=== PATIENT | female | born 2005 | race Hispanic/Latino ===

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

== ENCOUNTER 2024-09-01 11:59 | Emergency (ER) | payer OTHER ==
--- OUTSIDE RECORDS SUMMARY | 2024-09-01 12:03 | XMS REPORT | Continuity of Care Document ---
Author Name Unknown Address [address] [facility] [place], [place] [address] [place] [address] thconnect Address [address] [facility] [place] [address] Care Team Providers Care Pediatric Physical Therapist Name Role Phone NEFTALI HERNÁNDEZ Attending Clinician Unavailable GABRIELA KEANE Attending Clinician Unavailable [facility] Attending Clinician UnavailTIMUR Rangel Attending Clinician Leora CALVERT MD Attending Clinician Unavailab le [email or web address]_S Attending Clinician Unavaila ble LAB90 Attending Clinician Unavailable [email or web address]_S Admitting Clinician Unavaila ble Payers Payer Name Policy Type Policy Number Effective Date Expirati on Date Source [facility] 2 [id number] 2023 00:00:00 [facility] - [facility] - DOS ON OR AFTER 2022 (EPO) [id number] [facility] - [facility] [id number] Problems Condition Name Condition Details Condition Category Status Onset Date Resolution Date Last Treatment Date Treating Clinician Comments Source TIMUR (generaliz ed anxiety disorder) TIMUR (generaliz ed anxiety disorder) Disease Active 02-06 00:00: 00 Jolie gaona Morbid obesity Morbid obesity Disease Active 12-10 00:00: 00 Jolie Dougherty - Kirstina l BMI 50.0-59.9, adult BMI 50.0-59.9, adult Disease Active 12-10 00:00: 00 Jolie Dougherty - Externa l Vitamin D deficiency Vitamin D deficiency Disease Active 12-10 00:00: 00 Jolie Fontana Externa l Hypertrigl yceridemia Hypertrigl yceridemia Disease Active 12-10 00:00: 00 Jolie Dougherty - Externa l Elevated ALT measuremen t Elevated ALT measuremen t Disease Active 12-10 00:00: 00 Jolie Dougherty - Externa l Pain in pelvis Pain in Pelvis Problem Active 12-06 00:00: 00 [facility] Dysmenorrh ea Dysmenorrh ea Problem Active 2019-11 00:00: 00 [facility] Excessive and frequent menstruati on Excessive and Frequent Menstruati on Problem Active 2019-11 00:00: 00 [facility] Body mass index 40+ - severely obese Body Mass Index 40+ - Severely Obese Problem Active 2019-11 00:00: 00 [facility] Severe obesity Severe Obesity Problem Active 2019-11 00:00: 00 [facility] Social History Social Habit Start Date Stop Date Quantity Comments Source ASSERTION Not Jolie Dougherty - External Sexual orientation [place] ryanne Dougherty - External History of Social function 2024-08-12 00:00:00 2024-08-12 00:00:00 Jolie Dougherty - External Sex 2023-10-19 07:40:25 2023-10-19 07:40:25 Female (finding) Jolie Dougherty - External Tobacco use and exposure 2023-10-19 00:00:00 2023-10-19 00:00:00 Smokeless tobacco non-user Jolie Dougherty - External Sex assigned at 2005 00:00:00 2005 00:00:00 F Jolie Dougherty - External Smoking Status Start Date Stop Date Source Never smoked tobacco Jolie Dougherty - External Medications Ordered Medication Name Filled Medication Name Start Date Stop Date Current Medication? Ordering Clinician Indication Dosage Frequency Signature (SIG) Comments Components Source Ondansetron (ZOFRAN) 4 MG oral TABLET DISPERSIBLE 2023-11 15:53: 58 Yes ondansetro n 4 mg disintegra ting tablet TAKE ONE (1) TABLET BY MOUTH EVERY 8 HOURS NEEDED FOR NAUSEA. Jolie gaona Propranolol HCl 10 MG oral Tablet 2023-11 15:53: 58 Yes [id number] propranolo l 10 mg tablet TAKE ONE (1) TABLET (10 MG TOTAL) BY MOUTH 3 TIMES DAILY NEEDED (ANXIETY). Jolie gaona Trazodone HCl 50 MG oral Tablet 2023-11 00:00: 00 Yes [id number] 50mg QD Take 1 tablet (50 mg total) by mouth nightly. Jolie gaona Semaglutide -Weight Management (Wegovy) 0.25 MG/0.5ML subcutaneou s Solution Auto-inject or 2023-11 00:00: 00 Yes [id number] .25mg Q1W Inject 0.25 mg into the skin once a week. Jolie gaona Phentermine HCl 37.5 MG oral Tablet 2023-11 00:00: 00 Yes [id number] 37.5mg Take 1 tablet (37.5 mg total) by mouth every morning (before breakfast) . Jolie gaona Fluoxetine HCl 20 MG oral Capsule 2023-11 00:00: 00 Yes [id number] 60mg QD Take 3 capsules (60 mg total) by mouth daily. Jolie gaona Norgestimat e-Ethinyl Estradiol (Tri-Estary lla) 0.18/0.215/ 0.25 MG-35 MCG oral Tablet 07-07 14:20: 51 07-07 00:00 :00 No 1{tbl} QD Take 1 tablet by mouth daily. Jolie gaona Norgestimat e-Ethinyl Estradiol (Tri-Estary lla) 0.18/0.215/ 0.25 MG-35 MCG oral Tablet 07-07 00:00: 00 Yes [id number] 1{tbl} QD Take 1 tablet by mouth daily. Jolie gaona Topiramate 50 MG oral Tablet 07-07 00:00: 00 Yes [id number] 50mg Q.5D Take 1 tablet (50 mg total) by mouth 2 times daily. Jolie gaona Fluoxetine HCl 20 MG oral Capsule 07-07 00:00: 00 08-12 00:00 :00 No [id number] 60mg QD Take 3 capsules (60 mg total) by mouth daily. Jolie gaona Phentermine HCl 37.5 MG oral Tablet 07-07 00:00: 00 08-12 00:00 :00 No [id number] 18.75mg Take 0.5 tablets (18.75 mg total) by mouth every morning (before breakfast) . Jolie gaona Diethylprop ion HCl CR 75 MG oral TABLET SR 24 HR 07-07 00:00: 00 07-07 00:00 :00 No [id number] 1{tbl} QD Take 1 tablet by mouth daily. Jolie gaona Lisdexamfet amine Dimesylate (Vyvanse) 30 MG oral Capsule 06-13 09:24: 47 06-13 00:00 :00 No 1 capsule in the morning; Once a day Jolie gaona Norgestimat e-Ethinyl Estradiol (Tri-Estary lla) 0.18/0.215/ 0.25 MG-35 MCG oral Tablet 06-13 09:16: 56 Yes 1{tbl} QD Take 1 tablet by mouth daily. Jolie gaona Cetirizine HCl (ZyrTEC Allergy) 10 MG oral Capsule 06-13 00:00: 00 Yes [id number] 10mg QD Take 1 capsule (10 mg total) by mouth daily. Jolie gaona Cholecalcif driss (Vitamin D) 25 MCG (1000 UT) oral Tablet 06-13 00:00: 00 08-12 00:00 :00 No [id number] 1{tbl} QD Take 1 tablet by mouth daily. Jolie gaona Ciprofloxac in-dexAMETH asone 0.3-0.1 % otic Suspension 06-13 00:00: 00 06-19 04:59 :00 Yes [id number] 51950 3[drp] Q.5D Place 3 drops into the left ear 2 times daily for 5 days. Jolie gaona Norgestimat e-Ethinyl Estradiol (Tri-Estary lla) 0.18/0.215/ 0.25 MG-35 MCG oral Tablet 06-05 15:08: 47 Yes 1{tbl} QD Take 1 tablet by mouth daily. Jolie gaona Lisdexamfet amine Dimesylate (Vyvanse) 30 MG oral Capsule 06-05 15:08: 47 Yes 1 capsule in the morning; Once a day Jolie gaona Diethylprop ion HCl CR 75 MG oral TABLET SR 24 HR 06-05 00:00: 00 07-07 00:00 :00 No [id number] 1{tbl} QD Take 1 tablet by mouth daily. Jolie gaona Norgestimat e-Ethinyl Estradiol (Ortho Tri-Cyclen Lo) 0.18/0.215/ 0.25 MG-25 MCG oral Tablet 06-05 00:00: 00 06-13 00:00 :00 No [id number] 1{tbl} QD Take 1 tablet by mouth daily. Jolie gaona Amoxicillin 875 MG oral Tablet 06-05 00:00: 00 06-13 00:00 :00 No [id number] 875mg Q.5D Take 1 tablet (875 mg total) by mouth 2 times daily. Jolie gaona Diethylprop ion HCl CR 75 MG oral TABLET SR 24 HR 05-13 00:00: 00 06-05 00:00 :00 No [id number] 1{tbl} QD Take 1 tablet by mouth daily. Jolie gaona Diethylprop ion HCl CR 75 MG oral TABLET SR 24 HR 03-14 00:00: 00 Yes [id number] 1{tbl} Take 1 tablet by mouth daily. Jolie gaona Fluocinolon e Acetonide 0.01 % apply externally Cream 03-14 00:00: 00 Yes [id number] 1{appli cation} Q.5D Apply 1 Applicatio n topically 2 times daily. Jolie gaona Topiramate 50 MG oral Tablet 03-14 00:00: 07-07 00:00 :00 No [id number] 50mg Q.5D Take 1 tablet (50 mg total) by mouth 2 times daily. Jolie gaona Fluoxetine HCl 40 MG oral Capsule 03-14 00:00: 00 07-07 00:00 :00 No [id number] 40mg QD Take 1 capsule (40 mg total) by mouth daily. Jolie gaona Triamcinolo ne Acetonide 0.1 % apply externally Cream 03-14 00:00: 00 04-12 04:59 :00 No [id number] Apply to rash twice daily. Jolie gaona Ondansetron (ZOFRAN) 4 MG oral TABLET DISPERSIBLE 02-06 00:00: 00 06-13 00:00 :00 No [id number] 4mg Q.[id number] 3D Take 1 tablet (4 mg total) by mouth every 8 hours as needed for nausea. Jolie gaona Norgestimat e-Ethinyl Estradiol (Ortho Tri-Cyclen Lo) 0.18/0.215/ 0.25 MG-25 MCG oral Tablet 02-06 00:00: 00 06-05 00:00 :00 No [id number] 1{tbl} QD Take 1 tablet by mouth daily. Jolie gaona Diethylprop ion HCl CR 75 MG oral TABLET SR 24 HR 02-06 00:00: 00 03-14 00:00 :00 No [id number] 1{tbl} Take 1 tablet by mouth daily. Jolie gaona Topiramate 50 MG oral Tablet 02-06 00:00: 00 03-14 00:00 :00 No [id number] 50mg Take 1 tablet (50 mg total) by mouth 2 times daily. Jolie gaona Fluoxetine HCl 40 MG oral Capsule 02-06 00:00: 00 03-14 00:00 :00 No [id number] 40mg Take 1 capsule (40 mg total) by mouth daily. Jolie gaona Semaglutide -Weight Management (Wegovy) 0.25 MG/0.5ML subcutaneou s Solution Auto-inject or 01-08 00:00: 00 Yes [id number] .25mg Inject 0.25 mg into the skin once a week. Jolie gaona Topiramate 50 MG oral Tablet 01-08 00:00: 00 Yes [id number] 50mg Take 1 tablet (50 mg total) by mouth 2 times daily. Jolie gaona Diethylprop ion HCl CR 75 MG oral TABLET SR 24 HR 01-08 00:00: 00 Yes [id number] 1{tbl} Take 1 tablet by mouth daily. Jolie gaona Fluoxetine HCl 20 MG oral Capsule 01-08 00:00: 00 Yes [id number] 20mg Take 1 capsule (20 mg total) by mouth daily. Jolie gaona Propranolol HCl 10 MG oral Tablet 01-08 00:00: 00 06-13 00:00 :00 No [id number] 10mg Q.[id number] 3D Take 1 tablet (10 mg total) by mouth 3 times daily as needed (anxiety). Jolie gaona Semaglutide -Weight Management (Wegovy) 0.25 MG/0.5ML subcutaneou s Solution Auto-inject or 2- 00:00: 00 01-08 00:00 :00 No [id number] .25mg Inject 0.25 mg into the skin once a week. Jolie gaona Vitamin D, Ergocalcife rol, 1.25 MG (21203 UT) oral Capsule 2-05 00:00: 00 06-13 00:00 :00 No [id number] 34448Y Q1W Take 1 capsule (50,000 units total) by mouth once a week. Jolie gaona Topiramate 25 MG oral Tablet 12-10 00:00: 00 Yes [id number] 25mg Take 1 tablet (25 mg total) by mouth 2 times daily. Jolie gaona Tirzepatide -Weight Management 2.5 MG/0.5ML subcutaneou s Solution Auto-inject or 12-10 00:00: 00 Yes [id number] 2.5mg Inject 0.5 mL (2.5 mg total) into the skin once a week. Jolie gaona levoFLOXaci n 500 MG oral Tablet 12-05 00:00: 00 01-08 00:00 :00 No 500mg Take 1 tablet (500 mg total) by mouth daily. Jolie gaona Metronidazo le 500 MG oral Tablet 12-05 00:00: 00 01-08 00:00 :00 No 500mg Take 1 tablet (500 mg total) by mouth every 12 hours. Jolie gaona Vitamin D, Ergocalcife rol, 1.25 MG (80607 UT) oral Capsule -15 00:00: 00 Yes [id number] 79170K Take 1 capsule (50,000 units total) by mouth once a week. Jolie gaona Norgestimat e-Ethinyl Estradiol (Ortho Tri-Cyclen Lo) 0.18/0.215/ 0.25 MG-25 MCG oral Tablet 11-19 00:00: 00 Yes [id number] 1{tbl} Take 1 tablet by mouth daily. Jolie gaona Ondansetron (ZOFRAN) 4 MG oral TABLET DISPERSIBLE 11-19 00:00: 00 01-08 00:00 :00 No [id number] 4mg Q.[id number] 3D Take 1 tablet (4 mg total) by mouth every 8 hours as needed for nausea. Jolie gaona Amoxicillin -Pot Clavulanate 875-125 MG oral Tablet 11-14 00:00: 00 Yes TAKE ONE (1) TABLET(S) BY MOUTH TWICE A DAY FOR 7 DAYS. Jolie gaona Promethazin e HCl (PHENERGAN) 25 MG oral Tablet 11-14 00:00: 00 Yes TAKE ONE (1) TABLET(S) BY MOUTH EVERY FOUR TO SIX HOURS NEEDED FOR VOMITING. Jolie gaona Norgestimat e-Ethinyl Estradiol (Tri-Sprint ec) 0.18/0.215/ 0.25 MG-35 MCG oral Tablet 2022-11 00:00: 00 Yes [id number] 1{tbl} Take 1 tablet by mouth daily. Jolie gaona Naproxen 500 MG oral Tablet 2022-11 00:00: 00 08-12 00:00 :00 No [id number] 500mg Take 1 tablet (500 mg total) by mouth in the morning and 1 tablet (500 mg total) in the evening. Take with meals. Jolie gaona Amoxicillin -Pot Clavulanate 875-125 MG oral Tablet 2022-11 00:00: 00 Yes [id number] 1{tbl} Take 1 tablet by mouth 2 times daily. Jolie gaona Pseudoeph-B romphen-DM 30-2-10 MG/5ML oral Syrup 2022-11 00:00: 00 Yes [id number] 10mL Q.25D Take 10 mL by mouth 4 times daily as needed. Jolie gaona Tri-Estaryl la (28) 0.18 mg(7)/0.215 mg(7)/0.25 mg(7)-35 mcg tablet TAKE ONE (1) TABLET(S) BY MOUTH DAILY. Tri-Estaryl la (28) 0.18 mg(7)/0.215 mg(7)/0.25 mg(7)-35 mcg tablet TAKE ONE (1) TABLET(S) BY MOUTH DAILY. No Tri-Estary lla (28) 0.18 mg(7)/0.21 5 mg(7)/0.25 mg(7)-35 mcg tablet TAKE ONE (1) TABLET(S) BY MOUTH DAILY. [facility] Tri-Lo-Spri ntec 0.18 mg/0.215 mg/0.25 mg-25 mcg tablet Take 1 tablet every day by oral route for 84 days. Tri-Lo-Spri ntec 0.18 mg/0.215 mg/0.25 mg-25 mcg tablet Take 1 tablet every day by oral route for 84 days. No 1 Q1D Tri-Lo-Spr intec 0.18 mg/0.215 mg/0.25 mg-25 mcg tablet Take 1 tablet every day by oral route for 84 days. [facility] Immunizations Ordered Immunization Name Filled Immunization Name Date Status Comments Source MMR- Measles, Mumps, Rubella Unknown Completed Jolie Seybold - External Pneumococcal Vaccine, Conjugate 7 Unknown Completed Jolie Seybold - External Varicella Vaccine Unknown Completed Ke lsey Seybold - External Hepatitis B, Unspecified Unknown Completed Jolie Seybold - External MMR- Measles, Mumps, Rubella Unknown Completed Jolie Seybold - External Pneumococcal Vaccine, Conjugate 7 Unknown Completed Jolie Seybold - External Varicella Vaccine Unknown Completed Ke lsey Seybold - External Hepatitis B, Unspecified Unknown Completed Jolie Seybold - External MMR- Measles, Mumps, Rubella Unknown Completed Jolie Seybold - External Pneumococcal Vaccine, Conjugate 7 Unknown Completed Jolie Seybold - External Varicella Vaccine Unknown Completed Ke lsey Seybold - External Hepatitis B, Unspecified Unknown Completed Jolie Seybold - External MMR- Measles, Mumps, Rubella Unknown Completed Jolie Seybold - External Pneumococcal Vaccine, Conjugate 7 Unknown Completed Jolie Seybold - External Varicella Vaccine Unknown Completed Ke lsey Seybold - External Hepatitis B, Unspecified Unknown Completed Jolie Seybold - External MMR- Measles, Mumps, Rubella Unknown Completed Jolie Seybold - External Pneumococcal Vaccine, Conjugate 7 Unknown Completed Jolie Seybold - External Varicella Vaccine Unknown Completed Ke lsey Seybold - External Hepatitis B, Unspecified Unknown Completed Jolie Seybold - External DTP-Hib-Hep B Unknown Completed Jolie Seybold - External MMR- Measles, Mumps, Rubella Unknown Completed Jolie Seybold - External Pneumococcal Vaccine, Conjugate 7 Unknown Completed Jolie Seybold - External Varicella Vaccine Unknown Completed Ke lsey Seybold - External Hepatitis B, Unspecified Unknown Completed Jolie Seybold - External DTP-Hib-Hep B Unknown Completed Jolie Seybold - External MMR- Measles, Mumps, Rubella Unknown Completed Jolie Seybold - External Pneumococcal Vaccine, Conjugate 7 Unknown Completed Jolie Seybold - External Varicella Vaccine Unknown Completed Ke lsey Seybold - External Hepatitis B, Unspecified Unknown Completed Jolie Seybold - External DTP-Hib-Hep B Unknown Completed Jolie Seybold - External MENINGOCOCCAL VACCINE-CONJUGATE(MENQ UADFI) Unknown Completed Jolie Seybold - External MMR- Measles, Mumps, Rubella Unknown Completed Jolie Seybold - External Pneumococcal Vaccine, Conjugate 7 Unknown Completed Jolie Seybold - External Varicella Vaccine Unknown Completed Ke lsey Seybold - External Hepatitis B, Unspecified Unknown Completed Ojlie Seybold - External DTP-Hib-Hep B Unknown Completed Jolie Seybold - External MENINGOCOCCAL VACCINE-CONJUGATE(MENQ UADFI) Unknown Completed Jolie Seybold - External MMR- Measles, Mumps, Rubella Unknown Completed Jolie Seybold - External Pneumococcal Vaccine, Conjugate 7 Unknown Completed Jolie Seybold - External Varicella Vaccine Unknown Completed Ke lsey Seybold - External MMR- Measles, Mumps, Rubella Unknown Completed Jolie Seybold - External Pneumococcal Vaccine, Conjugate 7 Unknown Completed Jolie Seybold - External Varicella Vaccine Unknown Completed Ke lsey Seybold - External Hepatitis B, Unspecified Unknown Completed Jolie Seybold - External Vital Signs Vital Name Observation Time Observation Value Comments S [facility] Systolic blood pressure 2024-08-12 20:50:00 144 mm[Hg] Jolie Mendez ld - External Diastolic blood pressure 2024-08-12 20:50:00 68 mm[Hg] Jolie Mendez ld - External Heart rate 2024-08-12 20:50:00 96 /min Alta Dougherty - External Body temperature 2024-08-12 20:50:00 36.83 Flores Jolie Dougherty - External Respiratory rate 2024-08-12 20:50:00 15 /min Jolie Dougherty - External Body height 2024-08-12 20:50:00 182.9 cm Talya ey Seybold - External Body weight 2024-08-12 20:50:00 185.521 kg Talya ey Seybold - External BMI 2024-08-12 20:50:00 55.47 kg/m2 Talya ey Seybold - External Systolic blood pressure 2024-07-07 19:13:00 120 mm[Hg] Jolie Seybo ld - External Diastolic blood pressure 2024-07-07 19:13:00 60 mm[Hg] Jolie Seybo ld - External Heart rate 2024-07-07 19:13:00 103 /min Kelse y Seybold - External Body temperature 2024-07-07 19:13:00 36.56 Flores Jolie Seybold - External Respiratory rate 2024-07-07 19:13:00 16 /min Jolie Seybold - External Body height 2024-07-07 19:13:00 182.9 cm Talya ey Seybold - External Body weight 2024-07-07 19:13:00 185.521 kg Talya ey Seybold - External BMI 2024-07-07 19:13:00 55.47 kg/m2 Talya ey Seybold - External Systolic blood pressure 2024-06-13 14:14:00 120 mm[Hg] Ojlie Seybo ld - External Diastolic blood pressure 2024-06-13 14:14:00 58 mm[Hg] Jolie Seybo ld - External Heart rate 2024-06-13 14:14:00 73 /min Kelse y Seybold - External Body temperature 2024-06-13 14:14:00 37.11 Flores Jolie Seybold - External Respiratory rate 2024-06-13 14:14:00 15 /min Jolie Seybold - External Body height 2024-06-13 14:14:00 182.9 cm Talya ey Seybold - External Body weight 2024-06-13 14:14:00 180.532 kg Talya ey Seybold - External BMI 2024-06-13 14:14:00 53.98 kg/m2 Talya ey Seybold - External Oxygen saturation in Arterial blood by Pulse oximetry 2024-06-13 14:14:00 93 /min Jolie Seybo ld - External Systolic blood pressure 2024-06-05 20:03:00 140 mm[Hg] Jolie Seybo ld - External Diastolic blood pressure 2024-06-05 20:03:00 70 mm[Hg] Jolie Seybo ld - External Heart rate 2024-06-05 20:03:00 95 /min Kelse y Seybold - External Body temperature 2024-06-05 20:03:00 36.94 Flores Jolie Seybold - External Respiratory rate 2024-06-05 20:03:00 16 /min Jolie Seybold - External Body height 2024-06-05 20:03:00 182.9 cm Talya ey Seybold - External Body weight 2024-06-05 20:03:00 178.717 kg Talya ey Seybold - External BMI 2024-06-05 20:03:00 53.44 kg/m2 Talya ey Seybold - External BP Systolic 2024-04-15 00:00:00 142 mm[Hg] [facility] Height 2024-04-15 00:00:00 72 [in_i] [facility] BP Diastolic 2024-04-15 00:00:00 89 mm[Hg] [facility] BMI (Body Mass Index) 2024-04-15 00:00:00 50.2 kg/m2 [facility] Body Weight 2024-04-15 00:00:00 370 [lb_av] [facility] Systolic blood pressure 2024-03-14 19:57:00 128 mm[Hg] Jolie Seybo ld - External Diastolic blood pressure 2024-03-14 19:57:00 60 mm[Hg] Jolie Seybo ld - External Heart rate 2024-03-14 19:57:00 110 /min Kelse y Seybold - External Body temperature 2024-03-14 19:57:00 36.67 Flores Ojlie Seybold - External Respiratory rate 2024-03-14 19:57:00 15 /min Jolie Seybold - External Body height 2024-03-14 19:57:00 182.9 cm Talya ey Seybold - External Body weight 2024-03-14 19:57:00 169.192 kg Talya ey Seybold - External BMI 2024-03-14 19:57:00 50.59 kg/m2 Talya ey Seybold - External Systolic blood pressure 2024-02-07 19:45:00 120 mm[Hg] Jolie Seybo ld - External Diastolic blood pressure 2024-02-07 19:45:00 72 mm[Hg] Jolie Seybo ld - External Heart rate 2024-02-07 19:45:00 67 /min Kelse y Seybold - External Body temperature 2024-02-07 19:45:00 36.67 Flores Jolie Seybold - External Respiratory rate 2024-02-07 19:45:00 16 /min Jolie Seybold - External Body height 2024-02-07 19:45:00 182.9 cm Talya ey Seybold - External Body weight 2024-02-07 19:45:00 175.996 kg Talya ey Seybold - External BMI 2024-02-07 19:45:00 52.62 kg/m2 Talya ey Seybold - External Systolic blood pressure 2024-01-08 21:12:00 118 mm[Hg] Jolie Seybo ld - External Diastolic blood pressure 2024-01-08 21:12:00 64 mm[Hg] Jolie Seybo ld - External Heart rate 2024-01-08 21:12:00 98 /min Kelse y Seybold - External Body temperature 2024-01-08 21:12:00 36.56 Flores Jolie Seybold - External Respiratory rate 2024-01-08 21:12:00 15 /min Jolie Seybold - External Body height 2024-01-08 21:12:00 182.9 cm Talya ey Seybold - External Body weight 2024-01-08 21:12:00 184.614 kg Talya ey Seybold - External BMI 2024-01-08 21:12:00 55.20 kg/m2 Talya ey Seybold - External Systolic blood pressure 2023-12-10 22:21:00 120 mm[Hg] Jolie Seybo ld - External Diastolic blood pressure 2023-12-10 22:21:00 64 mm[Hg] Jolie Seybo ld - External Heart rate 2023-12-10 22:21:00 102 /min Kelse y Seybold - External Body temperature 2023-12-10 22:21:00 36.56 Flores Jolie Seybold - External Respiratory rate 2023-12-10 22:21:00 15 /min Jolie Seybold - External Body height 2023-12-10 22:21:00 182.9 cm Talya ey Seybold - External Body weight 2023-12-10 22:21:00 184.16 kg Talya ey Seybold - External BMI 2023-12-10 22:21:00 55.06 kg/m2 Talya ey Seybold - External Systolic blood pressure 2023-11-19 16:14:00 126 mm[Hg] Jolie Seybo ld - External Diastolic blood pressure 2023-11-19 16:14:00 82 mm[Hg] Jolie Seybo ld - External Heart rate 2023-11-19 16:14:00 95 /min Kelse y Seybold - External Body temperature 2023-11-19 16:14:00 36.44 Flores Jolie Seybold - External Respiratory rate 2023-11-19 16:14:00 14 /min Jolie Seybold - External Body height 2023-11-19 16:14:00 182.9 cm Talya ey Seybold - External Body weight 2023-11-19 16:14:00 177.81 kg Talya ey Seybold - External BMI 2023-11-19 16:14:00 53.16 kg/m2 Talya ey Seybold - External Systolic blood pressure 2023-11-02 21:52:00 120 mm[Hg] Jolie Seybo ld - External Diastolic blood pressure 2023-11-02 21:52:00 74 mm[Hg] Jolie Seybo ld - External Heart rate 2023-11-02 21:52:00 81 /min Kelse y Seybold - External Body temperature 2023-11-02 21:52:00 36.56 Flores Jolie Seybold - External Respiratory rate 2023-11-02 21:52:00 14 /min Jolie Seybold - External Body height 2023-11-02 21:52:00 182.9 cm Talya ey Seybold - External Body weight 2023-11-02 21:52:00 183.707 kg Talya ey Seybold - External BMI 2023-11-02 21:52:00 54.93 kg/m2 Talya ey Seybold - External Systolic blood pressure 2023-10-19 16:08:00 118 mm[Hg] Jolie Menono ld - External Diastolic blood pressure 2023-10-19 16:08:00 68 mm[Hg] Jolie Menono ld - External Heart rate 2023-10-19 16:08:00 52 /min Kelse y Seybold - External Body temperature 2023-10-19 16:08:00 36.72 Flores Jolie Seybold - External Respiratory rate 2023-10-19 16:08:00 18 /min Jolie Seybold - External Body height 2023-10-19 16:08:00 182.9 cm Talya ey Seybold - External Body weight 2023-10-19 16:08:00 180.985 kg Talya ey Seybold - External BMI 2023-10-19 16:08:00 54.11 kg/m2 Talya ey Seybold - External Oxygen saturation in Arterial blood by Pulse oximetry 2023-10-19 16:08:00 98 /min Jolie Mendez ld - External Procedures Procedure Date / Time Performed Performing Clinicia n Source Transvaginal Us Non-ob 2023-12-06 00:00:00 [facility] Tonsil[facility] 2012-04-12 00:00:00 [facility] Encounters Start Date/Time End Date/Time Encounter Type Admission Type Attending [facility] Care Department Encounter ID Source 2024-09-16 16:00:00 2024-09-16 16:00:00 Outpatient NEFTALI HERNÁNDEZ [id number] Jolie Dougherty 2024-08-25 00:00:00 2024-08-25 00:00:00 Outpatient GABRIELA KEANE [id number] Jolie Dougherty 2024-08-20 00:00:00 2024-08-20 00:00:00 Outpatient NEFTALI HERNÁNDEZ [id number] Jolie Dougherty 2024-08-12 16:00:00 2024-08-12 16:00:00 Outpatient NEFTALI HERNÁNDEZ [id number] Jolie Dougherty 2024-07-07 14:00:00 2024-07-07 14:00:00 Outpatient HUNDNEFTALI Gaona JOLIE LAWTON [id number] Jolie Johnsonybiram 2024-06-19 12:00:00 2024-06-19 12:00:00 Outpatient AIMEE DOYLE JOLIE LAWTON [id number] Jolie Johnsonybiram 2024-06-13 09:30:00 2024-06-13 09:30:00 Outpatient GABRIELA KEANE [facility] [id number] [facility] 2024-06-13 00:00:00 2024-06-13 00:00:00 Outpatient HUNDClayton, NEFTALI [facility] [id number] [facility] 2024-06-05 15:00:00 2024-06-05 15:00:00 Outpatient ESPERANZATIMUR WHITING [facility]WTON [id number] [facility] 2024-06-03 13:00:00 2024-06-03 13:00:00 Outpatient EDGAR NEFTALI JOLIE LAWTON [id number] [facility] 2024-05-09 16:30:00 2024-05-09 16:30:00 Outpatient NEFTALI HERNÁNDEZ JOLIE LAWTON [id number] [facility] 2024-04-15 00:00:00 2024-04-15 00:00:00 CHAPO Wallis: [address] [place], Ashley [address] [id number], [place] [address] , Ph. Critical access hospital - [facility]* [id number] [facility] 2024-04-09 00:00:00 2024-04-09 00:00:00 Outpatient EDGAR NEFTALI LAWTON [id number] [facility] 2024-03-14 15:00:00 2024-03-14 15:00:00 Outpatient EDGAR NEFTALI LAWTON [id number] [facility] 2024-02-07 15:00:00 2024-02-07 15:00:00 Outpatient NEFTALI HERNÁNDEZ [id number] [facility] 2024-01-28 00:00:00 2024-01-28 00:00:00 Outpatient VALENTINA HERNÁNDEZNaima LAWTON [id number] [facility] 2024-01-25 00:00:00 2024-01-25 00:00:00 Outpatient EDGAR NEFTALI LAWTON [id number] [facility] 2024-01-16 00:00:00 2024-01-16 00:00:00 Outpatient MD JOLIE NI [id number] [facility] 2024-01-08 15:30:00 2024-01-08 15:30:00 Outpatient EDGAR NEFTALI LAWTON [id number] [facility] 2023-12-19 00:00:00 2023-12-19 00:00:00 Outpatient EDGAR NEFTALI LAWTON [id number] [facility] 2023-12-12 00:00:00 2023-12-12 00:00:00 Outpatient EDGAR NEFTALI LAWTON [id number] [facility] 2023-12-11 00:00:00 2023-12-11 00:00:00 Outpatient GC_GCBZW_Ka diyala_S PRIV PRIV [id number] [facility] 2023-12-11 00:00:00 2023-12-11 00:00:00 Outpatient MD JOLIE NI [id number] [facility] 2023-12-10 16:30:00 2023-12-10 16:30:00 Outpatient JEANETTECalyton NEFTALI LAWTON [id number] [facility] 2023-12-06 00:00:00 2023-12-06 00:00:00 Outpatient GC_GCBZW_Ka diyala_S PRIV PRIV [id number] [facility] 2023-12-05 00:00:00 2023-12-05 00:00:00 Outpatient GC_GCBZW_Ka diyala_S PRIV PRIV [id number] [facility] 2023-11-26 00:00:00 2023-11-26 00:00:00 Outpatient EDGAR NEFTALI LAWTON [id number] [facility] 2023-11-21 00:00:00 2023-11-21 00:00:00 Outpatient MD JOLIE NI [id number] [facility] 2023-11-19 11:15:00 2023-11-19 11:15:00 Outpatient LAB90 JOLIE LAWTON [id number] [facility] 2023-11-19 10:30:00 2023-11-19 10:30:00 Outpatient NEFTALI HERNÁNDEZ JOLIE LAWTON [id number] [facility] 2023-11-19 00:00:00 2023-11-19 00:00:00 Outpatient JEANETTEClayton NEFTALI LAWTON [id number] [facility] 2023-11-02 16:30:00 2023-11-02 16:30:00 Outpatient LAB90 JOLIE LAWTON [id number] [facility] 2023-11-02 16:00:00 2023-11-02 16:00:00 Outpatient NEFTALI HERNÁNDEZ JOLIE LAWTON [id number] [facility] 2023-10-19 10:15:00 2023-10-19 10:15:00 Outpatient TIMUR MATA [id number] [facility] 2023-09-11 00:00:00 2023-09-11 00:00:00 Outpatient GC_GCBZW_Ka diyala_S PRIV PRIV [id number] [facility] Notes Date/Time Note Provider Source 2024-08-12 15:53:59 Chief Complaint Patient presents with Follow-up Follow up on weight management Traci Monroy MA II T [facility]olieFarhat [facility] 2024-07-07 14:16:43 Chief Complaint Patient presents with Follow-up Follow up on weight management Traci Monroy MA II T [facility]olieFarhat [facility] 2024-06-05 15:08:48 Chief Complaint Patient presents with Follow-up Follow up on weight management Traci Monroy MA II [facility] 2024-03-14 15:01:11 Chief Complaint Patient presents with Follow-up Follow up on weight management Traci Monroy MA II [facility] 2024-02-07 14:48:32 Chief Complaint Patient presents with Anxiety Follow up on anxiety/depression. Patient states that she is better. Traci Monroy MA II [facility] 2024-01-08 15:15:46 Chief Complaint Patient presents with Follow-up Follow up on weight management Traci Monroy MA II [facility] 2023-12-10 16:23:46 Chief Complaint Patient presents with Physical Weight Problem Discuss weight management Traci Monroy MA II [facility] 2023-11-19 10:18:47 Chief Complaint Patient presents with Nausea Nausea since last Sunday. Diarrhea occasionally. Frontal headaches above right eye. No abdominal pain. She went to [facility] this past Sunday for the nausea. She did UA. It showed Protein and she was given an antibiotic which she is still taking. Traci Monroy MA II [facility] 2023-11-02 15:55:51 Chief Complaint Patient presents with Contraception SHE WOULD LIKE TO START CONTROL. SHE HAS BEEN ON [facility] FOR IRREGULAR CYCLES ABOUT A YEAR AGO. SHE WOULD LIKE TO START FOR IRREGULAR CYCLES AND A CONTRACEPTIVE. Traci Monroy MA II [facility]
[2024-09-01] MEDS ORDERED: NA CHLORIDE 0.9% 1,000 ML ONE (13:40)
[2024-09-01] MEDS ORDERED: DIPHENHYDRAMINE 50 MG/ML VIAL ONE (13:40)
[2024-09-01] MEDS ORDERED: KETOROLAC 30 MG/ML INJ ONE (13:40)
[2024-09-01] MEDS ORDERED: METOCLOPRAMIDE 10 MG/2mL INJ ONE (13:40)
[2024-09-01 14:14] LABS: Specific Gravity 1.019 (1.005-1.030); Sqamous Epithelial <5 /HPF (None Seen); Urine Bacteria <20 /HPF (<20); Urine Bilirubin NEGATIVE (Negative); Urine Blood Trace (Negative); Urine Clarity Turbid (Clear); Urine Color Light-Yellow (Yellow); Urine Culture Reflex Order NOT NEEDED; Urine Glucose NEGATIVE (Negative); Urine Ketones NEGATIVE (Negative); Urine Microscopic Reflex YN ORDER UMIC; Urine Mucus Slight /HPF (None Seen); Urine Nitrite NEGATIVE (Negative); Urine Protein NEGATIVE (Negative); Urine RBC <5 /HPF (None Seen); Urine Urobilinogen Normal (Normal); Urine WBC <5 /HPF (<5); Urine pH 5.5 (5.0-7.0)
[2024-09-01 14:33] LABS: Absolute Basophils 0.1 K/uL (0-0.5); Absolute Eosinophils 0.1 K/uL (0-0.5); Absolute Lymphocytes (CBC) 2.6 K/uL (0.7-4.9); Absolute Monocytes 0.6 K/uL (0.1-1.3); Absolute Neutrophil 5.1 K/uL (1.8-8.0); Basophils % 0.8 % (0-1.3); Eosinophils % 1.6 % (0-4.4); Hematocrit 38.6 % (36.0-45.0); Hemoglobin 12.5 g/dL (12.0-15.0); Lymphocytes % 30.2 % (15.3-44.8); MCH 26.7 pg (27.0-35.0); MCHC 32.5 g/dL (32.0-36.0); MPV 9.1 fL (7.6-11.3); Monocytes % 7.2 % (3.3-12.3); Neutrophils % 60.2 % (41.7-73.7); Platelets 262 thou/uL (152-406); RBC Red Blood Cell Count 4.71 M/uL (3.86-4.86); Red Cell Distribution Width 14.5 % (12.1-15.2)
[2024-09-01 15:03] LABS: Albumin 3.4 g/dL (3.4-5.0); Albumin/Globulin Ratio 0.9 (1.1-1.8); Bilirubin Total 0.7 mg/dL (0.2-1.0); Globulin 3.6 g/dL (2.3-3.5)
--- NOTE | 2024-09-01 15:50 | ER ---
Nurse's Notes [facility] Name: Leslie Blood Age: 19 yrs Sex: Female : 2005 Arrival Date: 09/01/2024 Time: 11:59 Bed 15 Private MD: Diagnosis: Nausea;Diarrhea;Headache Presentation: 09/01 12:27 Chief complaint: Patient states: EASTON with N/V for 3 days. Diarrhea started yesterday. No ll1 fever. Coronavirus screen: Client denies travel out of the [place] in the last 14 days. At this time, the client does not indicate any symptoms associated with coronavirus-19. Ebola Screen: Patient denies travel to an Ebola-affected area in the 21 days before illness onset. Initial Sepsis Screen: Does the patient meet any 2 criteria? No. Patient's initial sepsis screen is negative. Does the patient have a suspected source of infection? No. Patient's initial sepsis screen is negative. Risk Assessment: Do you want to hurt yourself or someone else? Patient reports no desire to harm self or others. Onset of symptoms was August 30, 2024. 12:27 Method Of Arrival: Ambulatory ll1 12:27 Acuity: MAGGIE 3 ll1 Triage Assessment: 12:29 General: Appears uncomfortable, Behavior is calm, cooperative, appropriate for age. ll1 Pain: Complains of pain in head Pain currently is 8 out of 10 on a pain scale. Quality of pain is described as aching, throbbing. Neuro: Reports headache. GI: Reports diarrhea, nausea, vomiting. 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 - Infectious Disease History:: Denies. - Social history:: Smoking status: Patient denies any tobacco usage or history of. - Family history:: not pertinent. Screenin:15 [facility] ED Fall Risk Assessment (Adult) History of falling in the last 3 months, cm10 including since admission No falls in past 3 months (0 pts) Confusion or Disorientation No (0 pts) Intoxicated or Sedated No (0 pts) Impaired Gait No (0 pts) Mobility Assist Device Used No (0 pt) Altered Elimination No (0 pt) Score/Fall Risk Level 0 - 2 = Low Risk Oriented to surroundings, Maintained a safe environment, Hourly rounding (assess needs \T\ fall precautionary measures) done. Abuse screen: Denies threats or abuse. Denies injuries from another. Nutritional screening: No deficits noted. Tuberculosis screening: No symptoms or risk factors identified. Assessment: 14:13 General: Appears in no apparent distress. uncomfortable, Behavior is calm, cooperative. cm10 Neuro: No deficits noted. Level of Consciousness is awake, alert, obeys commands, Oriented to person, place, time, situation, Appropriate for age. Neuro: Reports headache. Respiratory: No deficits noted. Airway is patent Respiratory effort is even, unlabored, Respiratory pattern is regular, symmetrical. GI: Abdomen is non-distended, Reports diarrhea, nausea, vomiting. Derm: No deficits noted. Skin is healthy with good turgor. 15:15 Reassessment: Patient appears in no apparent distress at this time. No changes from cm10 previously documented assessment. Patient and/or family updated on plan of care and expected duration. Pain level reassessed. Patient is alert, oriented x 3, equal unlabored respirations, skin warm/dry/pink. Patient states feeling better. Patient states symptoms have improved. Vital Signs: 12:27 BP 146 / 72; Pulse 83; Resp 18; Temp 97.4; Pulse Ox 96% ; Weight 180.08 kg; Height 6 ll1 ft. 0 in. ; Pain 8/10; 14:08 BP 124 / 74; Pulse 74; Resp 12; Pulse Ox 97% on R/A; rs6 15:30 BP 110 / 66; Pulse 67; Resp 16; Pulse Ox 100% on R/A; cm10 12:27 Body Mass Index 53.84 (180.08 kg, 182.88 cm) ll1 12:27 Pain Scale: Adult ll1 ED Course: 12:02 Patient arrived in ED. ra3 12:06 Arm band placed on. ll1 12:18 Andre Kenyon MD is Attending Physician. rt 12:29 Triage completed. ll1 13:09 Chelle Saleh, EULALIO is Primary Nurse. cm10 14:07 Inserted saline lock: 22 gauge in right antecubital area, using aseptic technique. rs6 Blood collected. Flushed with 10 mL NS. 15:15 Patient has correct armband on for positive identification. Bed in low position. Call cm10 light in reach. Side rails up X 1. Provided Education on: ER process and procedures.. Pulse ox on. NIBP on. 16:15 No provider procedures requiring assistance completed. IV discontinued, intact, cm10 bleeding controlled, No redness/swelling at site. Pressure dressing applied. Administered Medications: 14:01 Drug: diphenhydrAMINE IVP 25 mg IVP once Route: IVP; Site: right antecubital; cm10 15:15 Follow up: Response: No adverse reaction cm10 14:01 Drug: Ketorolac IVP 15 mg IVP once Route: IVP; Site: right antecubital; cm10 15:15 Follow up: Response: No adverse reaction cm10 14:02 Drug: NS 0.9% IV 1000 ml IV at 1 bolus Per protocol; to be given as a bolus over 60 cm10 minutes Route: IV; Rate: 1 bolus; Site: right antecubital; 15:15 Follow up: Response: No adverse reaction; IV Status: Completed infusion; IV Intake: cm10 1000ml 14:02 Drug: metoCLOPramide IVP 10 mg IVP once; over 1 to 2 minutes Route: IVP; Site: right cm10 antecubital; 15:15 Follow up: Response: No adverse reaction cm10 Medication: 16:16 VIS not applicable for this client. cm10 Intake: 15:15 IV: 1000ml; Total: 1000ml. cm10 Outcome: 15:50 Discharge ordered by . rt 16:15 Discharged to home ambulatory, with significant other, cm10 16:15 Condition: good 16:15 Discharge instructions given to patient, Instructed on discharge instructions, follow up and referral plans. medication usage, Demonstrated understanding of instructions, follow-up care, medications, Prescriptions given X 1, 16:16 Patient left the ED. cm10 Signatures: Emma Rao RN RN ll1 Andre Kenyon MD MD rt Chelle Saleh RN RN cm10 Sravanthi Gary ra3 Andre Davis rs6 Corrections: (The following items were deleted from the chart) 12:30 12:27 BP 146 / 72; Pulse 83bpm; Resp 18bpm; Pulse Ox 96%; Temp 97.4F; Pain 8/10, Adult; ll1 ll1
--- NOTE | 2024-09-01 15:50 | EDPHYS ---
Physician Documentation [facility] Name: Leslie Blood Age: 19 yrs Sex: Female : 2005 Arrival Date: 09/01/2024 Time: 11:59 Bed 15 Private MD: ED Physician Andre Kenyon HPI: 09/01 17:21 This 19 yrs old Female presents to ER via Ambulatory with complaints of rt Nausea, Diarrhea, Headache. 17:21 Patient presents to the ED with nausea, diarrhea, headache starting today. Patient rt states that she has frequent headaches, this is not worse than her typical headaches. The patient reports no abdominal pain. Denies other acute complaints, symptoms are moderate in severity, no other aggravating or alleviating factors.. 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 - Infectious Disease History:: Denies. - Social history:: Smoking status: Patient denies any tobacco usage or history of. - Family history:: not pertinent. ROS: 17:21 Constitutional: Negative for fever, chills, and weight loss, Cardiovascular: Negative rt for chest pain, palpitations, and edema, Respiratory: Negative for shortness of breath, cough, wheezing, and pleuritic chest pain, MS/Extremity: Negative for injury and deformity, Skin: Negative for injury, rash, and discoloration, 17:21 Abdomen/GI: Positive for nausea, diarrhea, Negative for abdominal pain, 17:21 Neuro: Positive for headache, Negative for loss of consciousness, Exam: 17:21 Constitutional: This is a well developed, well nourished patient who is awake, alert, rt and in no acute distress. Head/Face: Normocephalic, atraumatic. Chest/axilla: Normal chest wall appearance and motion. Nontender with no deformity. No lesions are appreciated. Cardiovascular: Regular rate and rhythm with a normal S1 and S2. No gallops, murmurs, or rubs. Normal PMI, no JVD. No pulse deficits. Respiratory: Lungs have equal breath sounds bilaterally, clear to auscultation and percussion. No rales, rhonchi or wheezes noted. No increased work of breathing, no retractions or nasal flaring. Abdomen/GI: Soft, non-tender, with normal bowel sounds. No distension or tympany. No guarding or rebound. No evidence of tenderness throughout. Skin: Warm, dry with normal turgor. Normal color with no rashes, no lesions, and no evidence of cellulitis. MS/ Extremity: Pulses equal, no cyanosis. Neurovascular intact. Full, normal range of motion. Neuro: Awake and alert, GCS 15, oriented to person, place, time, and situation. Cranial nerves II-XII grossly intact. Motor strength 5/5 in all extremities. Sensory grossly intact. Cerebellar exam normal. Normal gait. Vital Signs: 12:27 BP 146 / 72; Pulse 83; Resp 18; Temp 97.4; Pulse Ox 96% ; Weight 180.08 kg; Height 6 ll1 ft. 0 in. ; Pain 8/10; 14:08 BP 124 / 74; Pulse 74; Resp 12; Pulse Ox 97% on R/A; rs6 15:30 BP 110 / 66; Pulse 67; Resp 16; Pulse Ox 100% on R/A; cm10 12:27 Body Mass Index 53.84 (180.08 kg, 182.88 cm) ll1 12:27 Pain Scale: Adult ll1 MDM: 12:26 Medical Screening Exam initiated rt 17:21 Differential diagnosis: Viral syndrome, gastroenteritis, migraine. Data reviewed: vital rt signs, nurses notes, lab test result(s). I considered the following discharge prescriptions or medication management in the emergency department Medications were administered in the Emergency Department. See MAR. Test considered but Not performed: CT: Patient has typical headache, does not require CT scan, benign abdominal examination, benign labs, low suspicion for acute intra-abdominal process as such as appendicitis, cholecystitis, CT scan of the abdomen pelvis not indicated. Counseling: I had a detailed discussion with the patient and/or guardian regarding the historical points, exam findings, and any diagnostic results supporting the discharge/admit diagnosis, lab results, the need for outpatient follow up, to return to the emergency department if symptoms worsen or persist or if there are any questions or concerns that arise at home. Response to treatment: the patient's symptoms have markedly improved after treatment. 09/01 12:33 Order name: CBC with Diff; Complete Time: 14:49 rt 09/01 12:33 Order name: CMP; Complete Time: 15:12 rt 09/01 12:33 Order name: Lipase; Complete Time: 15:12 rt 09/01 12:33 Order name: Test, Serum; Complete Time: 15:12 rt 09/01 13:34 Order name: Urinalysis w/ reflexes cm10 Administered Medications: 14:01 Drug: diphenhydrAMINE IVP 25 mg IVP once Route: IVP; Site: right antecubital; cm10 15:15 Follow up: Response: No adverse reaction cm10 14:01 Drug: Ketorolac IVP 15 mg IVP once Route: IVP; Site: right antecubital; cm10 15:15 Follow up: Response: No adverse reaction cm10 14:02 Drug: NS 0.9% IV 1000 ml IV at 1 bolus Per protocol; to be given as a bolus over 60 cm10 minutes Route: IV; Rate: 1 bolus; Site: right antecubital; 15:15 Follow up: Response: No adverse reaction; IV Status: Completed infusion; IV Intake: cm10 1000ml 14:02 Drug: metoCLOPramide IVP 10 mg IVP once; over 1 to 2 minutes Route: IVP; Site: right cm10 antecubital; 15:15 Follow up: Response: No adverse reaction cm10 Disposition Summary: 09/01/24 15:50 Discharge Ordered Notes: Location: Home rt Problem: new rt Symptoms: have improved rt Condition: Stable rt Diagnosis - Nausea rt - Diarrhea rt - Headache rt Followup: rt - With: Private Physician - When: 2 - 3 days - Reason: Discharge Instructions: - Discharge Summary Sheet rt - Diarrhea, Adult rt - General Headache Without Cause rt - Nausea and Vomiting, Adult rt Forms: - Medication Reconciliation Form rt - Antibiotic Education rt - Prescription Opioid Use rt - Patient Portal Instructions rt - Leadership Thank You Letter rt Prescriptions: - Reglan 10 mg Oral tablet - take 1 tablet ORAL route every 6 hours As needed for nausea; 15 tablet; rt Refills: 0, Product Selection Permitted Signatures: Dispatcher [employer] Emma Jenkins RN RN ll1 Andre Kenyon MD MD rt Chelle Saleh RN RN cm10
[2024-09-01 19:57] VITALS: TEMP 97.4
[2024-09-01 19:59] VITALS: BP 110/66; O2SAT 100
== END 2024-09-01 16:16 | disposition home or self-care (01) ==
LOC: ER 11:59
DX: R11.0 Nausea (principal); R19.7 Diarrhea, unspecified; R51.9 Headache, unspecified
CPT/HCPCS: 96361; 85025; 81001; 36415; 84703; 83690; 80053; 96375; 96374; 99284; J2765; J1200; J7030

== ENCOUNTER 2025-06-24 16:58 | Emergency (ER) | payer OTHER ==
--- OUTSIDE RECORDS SUMMARY | 2025-06-24 17:03 | XMS REPORT | Continuity of Care Document ---
Author Name Unknown Address [address] [facility] [address] [place] [address] [facility] [place] Address [address] [facility] [address] [place] [address] Care Team Providers Care Roads Supervisor Name Role Phone EDGARNEFTALI Attending Clinician Unavailable LAB90 Attending Clinician Unavailable GABRIELA KEANE Attending Clinician Unavailable AIMEE DOYLE Attending Clinician UnavailTIMUR Rangel Attending Clinician Leora CALVERT MD Attending Clinician Unavailab le GC_GCBZW_Kadiyala_S Attending Clinician Unavaila ble GC_GCBZW_Kadiyala_S Admitting Clinician Unavaila ble Payers Payer Name Policy Type Policy Number Effective Date Expirati on Date Source [facility] 2 [id number] 2023 00:00:00 [facility] - [facility] - DOS ON OR AFTER 2022 (EPO) [id number] [facility] [id number] Problems Condition Name Condition Details Condition Category Status Onset Date Resolution Date Last Treatment Date Treating Clinician Comments Source TIMUR (generaliz ed anxiety disorder) TIMUR (generaliz ed anxiety disorder) Disease Active 02-06 00:00: 00 Jolie Seybold - Externa l Morbid obesity Morbid obesity Disease Active 12-10 00:00: 00 Jolie Dougherty - Externa l BMI 50.0-59.9, adult BMI 50.0-59.9, adult Disease Active 12-10 00:00: 00 Jolie Dougherty - Externa l Vitamin D deficiency Vitamin D deficiency Disease Active 12-10 00:00: 00 Jolie Fontana Externa l Hypertrigl yceridemia Hypertrigl yceridemia Disease Active 12-10 00:00: 00 Jolie Fontana Externa l Elevated ALT measuremen t Elevated [...] Problem Active 2019-11 00:00: 00 [facility] Allergies, Adverse Reactions, Alerts Allergy Name Allergy Type Status Severity Reaction(s) Onset Date Inactive Date Treating Clinician Comments Source Augmenti n Propensi ty to adverse reaction s Active Nausea Only 12-11 00:00: 00 Jolie Fultona candelaria Augmenti n Allergy to substanc e Active Nausea [facility] Social History Social Habit Start Date Stop Date Quantity Comments Source ASSERTION Not Jolie Dougherty - External Sexual orientation K ryanne Dougherty - External History of Social function 2024-12-11 00:00:00 2024-12-11 00:00:00 Jolie Dougherty - External Sex 2023-10-19 07:40:25 2023-10-19 07:40:25 Female (finding) Jolie Dougherty - External Tobacco use and exposure 2023-10-19 00:00:00 2023-10-19 00:00:00 Smokeless tobacco non-user Jolie Carbone Sex assigned at 2005 00:00:00 2005 00:00:00 F Jolie Carbone Smoking Status Start Date Stop Date Source Never smoked tobacco Joliebertin Carbone Medications Ordered Medication Name Filled Medication Name Start Date Stop Date Current Medication? Ordering Clinician Indication Dosage Frequency Signature (SIG) Comments Components Source Doxycycline Hyclate 100 MG oral Capsule 11-26 00:00: 00 Yes 100mg Q.5D Take 1 capsule (100 mg total) by mouth 2 times daily. Jolie gaona Ondansetron (ZOFRAN) 4 MG oral TABLET DISPERSIBLE 2023-11 16:26: 40 10-27 00:00 :00 No ondansetro n 4 mg disintegra ting tablet TAKE ONE (1) TABLET BY MOUTH EVERY 8 HOURS NEEDED FOR NAUSEA. Jolie gaona Rimegepant Sulfate (Nurtec) 75 MG oral TABLET DISPERSIBLE 2023-11 00:00: 00 Yes [id number] 75mg Take 1 tablet (75 mg total) by mouth every other day. Jolie gaona Fluoxetine HCl 20 MG oral Capsule 2023-11 00:00: 00 Yes [id number] 60mg QD Take 3 capsules (60 mg total) by mouth daily. Jolie gaona Norgestimat e-Ethinyl Estradiol (Tri-Estary lla) 0.18/0.215/ 0.25 MG-35 MCG oral Tablet 2023-11 00:00: 00 Yes [id number] 1{tbl} QD Take 1 tablet by mouth daily. Jolie gaona Propranolol HCl 10 MG oral Tablet 2023-11 00:00: 00 Yes [id number] 10mg Q.[id number] 3D Take 1 tablet (10 mg total) by mouth 3 times daily as needed (Anxiety). Jolie gaona Topiramate 50 MG oral Tablet 2023-11 00:00: 00 Yes [id number] 50mg Q.5D Take 1 tablet (50 mg total) by mouth 2 times daily. Jolie gaona Ubrogepant (Ubrelvy) 50 MG oral Tablet 2023-11 00:00: 00 Yes [id number] Take 1 tab PO X 1 dose . May repeat dose one time after 2 hours.. Jolie gaona Diethylprop ion HCl CR 75 MG oral TABLET SR 24 HR 2023-11 00:00: 00 Yes [id number] 1{tbl} QD Take 1 tablet by mouth daily. Jolie gaona Propranolol HCl 10 MG oral Tablet 2023-11 00:00: 00 10-27 00:00 :00 No [id number] TAKE ONE (1) TABLET (10 MG TOTAL) BY MOUTH 3 TIMES DAILY NEEDED (ANXIETY). Jolie gaona Ondansetron (ZOFRAN) 4 MG oral TABLET DISPERSIBLE 2023-11 15:52: 58 Yes ondansetro n 4 mg disintegra ting tablet TAKE ONE (1) TABLET BY MOUTH EVERY 8 HOURS NEEDED FOR NAUSEA. Jolie gaona Propranolol HCl 10 MG oral Tablet 2023-11 15:52: 58 Yes [id number] propranolo l 10 mg tablet TAKE ONE (1) TABLET (10 MG TOTAL) BY MOUTH 3 TIMES DAILY NEEDED (ANXIETY). Jolie gaona Sumatriptan Succinate 25 MG oral Tablet 2023-11 00:00: 00 Yes [id number] 25mg Take 1 tablet (25 mg total) by mouth once as needed for migraine (May repeat in 2 hours if unresolved . Do not exceed 200 mg in 24 hours.). Jolie gaona Cetirizine (ZYRTEC) 10 MG oral Tablet 2023-11 00:00: 00 Yes 10mg QD Take 1 tablet (10 mg total) by mouth daily. Jolie gaona Cetirizine HCl (ZyrTEC Allergy) 10 MG oral Capsule 2023-11 00:00: 00 10-27 00:00 :00 No [id number] 10mg QD Take 1 capsule (10 mg total) by mouth daily. Jolie gaona Ondansetron (ZOFRAN) 4 MG oral TABLET DISPERSIBLE 2023-11 15:53: 58 Yes ondansetro n 4 mg disintegra ting tablet TAKE ONE (1) TABLET BY MOUTH EVERY 8 HOURS NEEDED FOR NAUSEA. Jolie gaona Propranolol HCl 10 MG oral Tablet 2023-11 15:53: 58 Yes [id number] propranolo l 10 mg tablet TAKE ONE (1) TABLET (10 MG TOTAL) BY MOUTH 3 TIMES DAILY NEEDED (ANXIETY). Jolie gaona Trazodone HCl 50 MG oral Tablet 2023-11 00:00: 00 Yes [id number] 50mg QD Take 1 tablet (50 mg total) by mouth nightly. Jolie gaona Fluoxetine HCl 20 MG oral Capsule 2023-11 00:00: 00 10-27 00:00 :00 No [id number] 60mg QD Take 3 capsules (60 mg total) by mouth daily. Jolie gaona Semaglutide -Weight Management (Wegovy) 0.25 MG/0.5ML subcutaneou s Solution Auto-inject or 2023-11 00:00: 00 09-16 00:00 :00 No [id number] .25mg Q1W Inject 0.25 mg into the skin once a week. Jolie gaona Phentermine HCl 37.5 MG oral Tablet 2023-11 00:00: 00 09-16 00:00 :00 No [id number] 37.5mg Take 1 tablet (37.5 mg total) by mouth every morning (before breakfast) . Jolie gaona Norgestimat e-Ethinyl Estradiol (Tri-Estary lla) 0.18/0.215/ 0.25 MG-35 MCG oral Tablet 07-07 14:20: 51 07-07 00:00 :00 No 1{tbl} QD Take 1 tablet by mouth daily. Jolie gaona Norgestimat e-Ethinyl Estradiol (Tri-Estary lla) 0.18/0.215/ 0.25 MG-35 MCG oral Tablet 07-07 00:00: 00 10-27 00:00 :00 No [id number] 1{tbl} QD Take 1 tablet by mouth daily. Jolie gaona Topiramate 50 MG oral Tablet 07-07 00:00: 00 10-27 00:00 :00 No [id number] 50mg Q.5D Take 1 tablet (50 mg total) by mouth 2 times daily. Jolie gaona Fluoxetine HCl 20 MG oral Capsule 07-07 00:00: 00 08-12 00:00 :00 No [id number] 60mg QD Take 3 capsules (60 mg total) by mouth daily. Jolie gaona Phentermine HCl 37.5 MG oral Tablet 07-07 00:00: 00 08-12 00:00 :00 No [id number] 18.75mg Take 0.5 tablets (18.75 mg total) by mouth every morning (before breakfast) . Jolie gaona Diethylprop ion HCl CR 75 MG oral TABLET SR 24 HR 07-07 00:00: 00 07-07 00:00 :00 No [id number] 1{tbl} QD Take 1 tablet by mouth [...] 10 MG oral Capsule 06-13 00:00: 00 09-16 00:00 :00 No [id number] 10mg QD Take 1 capsule (10 mg total) by mouth daily. Jolie gaona Cholecalcif driss (Vitamin D) 25 MCG (1000 UT) oral Tablet 06-13 00:00: 00 08-12 00:00 :00 No [id number] 1{tbl} QD Take 1 tablet by mouth daily. Jolie gaona Ciprofloxac in-dexAMETH asone 0.3-0.1 % otic Suspension 06-13 00:00: 00 06-19 04:59 :00 No [id number] 3[drp] Q.5D Place 3 drops into the [...] 06-05 00:00: 00 07-07 00:00 :00 No [id number] 1{tbl} QD Take 1 tablet by mouth daily. Jolie gaona Norgestimat e-Ethinyl Estradiol (Ortho Tri-Cyclen Lo) 0.18/0.215/ 0.25 MG-25 MCG oral Tablet 06-05 00:00: 00 06-13 00:00 :00 No [id number] 1{tbl} QD Take 1 tablet by mouth daily. Jolie gaona Amoxicillin 875 MG oral Tablet 06-05 00:00: 00 06-13 00:00 :00 No [id number] 875mg Q.5D Take 1 tablet (875 mg total) by mouth 2 times daily. Jolie gaona Diethylprop ion HCl CR 75 MG oral TABLET SR 24 HR 05-13 00:00: 00 06-05 00:00 :00 No [id number] 1{tbl} QD Take 1 tablet by mouth daily. Jolie gaona Diethylprop ion HCl CR 75 MG oral TABLET SR 24 HR 03-14 00:00: 00 Yes [id number] 1{tbl} Take 1 tablet by mouth daily. Jolie gaona Fluocinolon e Acetonide 0.01 % apply externally Cream 03-14 00:00: 09-16 00:00 :00 No [id number] 1{appli cation} Q.5D Apply 1 Applicatio n topically 2 times daily. Jolie gaona Topiramate 50 MG oral Tablet 03-14 00:00: 00 07-07 00:00 :00 No [id number] 50mg Q.5D Take 1 tablet (50 mg total) by mouth 2 times daily. Jolie gaona Fluoxetine HCl 40 MG oral Capsule 03-14 00:00: 00 07-07 00:00 :00 No [id number] 40mg QD Take 1 capsule (40 mg total) by mouth daily. Jolie gaona Triamcinolo ne Acetonide 0.1 % apply externally Cream 03-14 00:00: 00 04-12 04:59 :00 No [id number] Apply to rash twice daily. Jolie gaona Ondansetron (ZOFRAN) 4 MG oral TABLET DISPERSIBLE 02-06 00:00: 00 06-13 00:00 :00 No [id number] 4mg Q.[id number] 3D Take 1 tablet (4 mg total) by mouth every 8 hours as needed for nausea. Jolie gaona Norgestimat e-Ethinyl Estradiol (Ortho Tri-Cyclen Lo) 0.18/0.215/ 0.25 MG-25 MCG oral Tablet 02-06 00:00: 00 06-05 00:00 :00 No [id number] 1{tbl} QD Take 1 tablet by mouth daily. Jolie gaona Diethylprop ion HCl CR 75 MG oral TABLET SR 24 HR 02-06 00:00: 00 03-14 00:00 :00 No [id number] 1{tbl} Take 1 tablet by mouth daily. Jolie gaona Topiramate 50 MG oral Tablet 02-06 00:00: 00 03-14 00:00 :00 No [id number] 50mg Take 1 tablet (50 mg total) by mouth 2 times daily. Jolie gaona Fluoxetine HCl 40 MG oral Capsule 02-06 00:00: 00 03-14 00:00 :00 No [id number] 40mg Take 1 capsule (40 mg total) by mouth daily. Jolie gaona Semaglutide -Weight Management (Wegovy) 0.25 MG/0.5ML subcutaneou s Solution Auto-inject or 01-08 00:00: 00 Yes [id number] .25mg Inject 0.25 mg into the skin once a week. Jolie gaona Topiramate 50 MG oral Tablet 01-08 00:00: 00 Yes [id number] 50mg Take 1 tablet (50 mg total) by mouth 2 times daily. Jolie gaona Diethylprop ion HCl CR 75 MG oral TABLET SR 24 HR 01-08 00:00: 00 Yes [id number] 1{tbl} Take 1 tablet by mouth daily. Jolie gaona Fluoxetine HCl 20 MG oral Capsule 01-08 00:00: 00 Yes [id number] 20mg Take 1 capsule (20 mg total) by mouth daily. Jolie gaona Propranolol HCl 10 MG oral Tablet 01-08 00:00: 00 06-13 00:00 :00 No [id number] 10mg Q.[id number] 3D Take 1 tablet (10 mg total) by mouth 3 times daily as needed (anxiety). Jolie gaona Semaglutide -Weight Management (Wegovy) 0.25 MG/0.5ML subcutaneou s Solution Auto-inject or 2-07 00:00: 00 01-08 00:00 :00 No [id number] .25mg Inject 0.25 mg into the skin once a week. Jolei gaona Vitamin D, Ergocalcife rol, 1.25 MG (62804 UT) oral Capsule 2-05 00:00: 00 06-13 00:00 :00 No [id number] 55939V Q1W Take 1 capsule (50,000 units total) by mouth once a week. Jolie gaona Topiramate 25 MG oral Tablet 12-10 00:00: 00 Yes [id number] 25mg Take 1 tablet (25 mg total) by mouth 2 times daily. Jolie gaona Tirzepatide -Weight Management 2.5 MG/0.5ML subcutaneou s Solution Auto-inject or 12-10 00:00: 00 Yes [id number] 2.5mg Inject 0.5 mL (2.5 mg total) [...] gaona Vitamin D, Ergocalcife rol, 1.25 MG (49273 UT) oral Capsule 1-15 00:00: 00 Yes [id number] 60993L Take 1 capsule (50,000 units total) by mouth once a week. Jolie gaona Norgestimat e-Ethinyl Estradiol (Ortho Tri-Cyclen Lo) 0.18/0.215/ 0.25 MG-25 MCG oral Tablet 1-08 00:00: 00 Yes [id number] 1{tbl} Take 1 tablet by mouth daily. Jolie gaona Ondansetron (ZOFRAN) 4 MG oral TABLET DISPERSIBLE 11-19 00:00: 00 01-08 00:00 :00 No [id number] 4mg Q.[id number] 3D Take 1 tablet (4 mg total) [...] MCG oral Tablet 2022-11 00:00: 00 Yes [id number] 1{tbl} Take 1 tablet by mouth daily. Jolie gaona Naproxen 500 MG oral Tablet 2022-11 00:00: 00 08-12 00:00 :00 No [id number] 500mg Take 1 tablet (500 mg total) by mouth in the morning and 1 tablet (500 mg total) in the evening. Take with meals. Jolie gaona Amoxicillin -Pot Clavulanate 875-125 MG oral Tablet 2022-11 00:00: 00 Yes [id number] 1{tbl} Take 1 tablet by mouth 2 times daily. Jolie gaona Pseudoeph-B romphen-DM 30-2-10 MG/5ML oral Syrup 2022-11 00:00: 00 Yes [id number] 10mL Q.25D Take 10 mL by mouth 4 times daily as needed. Jolie gaona Tri-Estaryl la (28) 0.18 mg(7)/0.215 mg(7)/0.25 mg(7)-0.035 mg tablet TAKE ONE (1) TABLET(S) BY MOUTH ONCE A DAY. Tri-Estaryl la (28) 0.18 mg(7)/0.215 mg(7)/0.25 mg(7)-0.035 mg tablet TAKE ONE (1) TABLET(S) BY MOUTH ONCE A DAY. No Tri-Estary lla (28) 0.18 mg(7)/0.21 5 mg(7)/0.25 mg(7)-0.03 5 mg tablet TAKE ONE (1) TABLET(S) BY MOUTH ONCE A DAY. [facility] Immunizations Ordered Immunization Name Filled Immunization Name [...] UADFI) Unknown Completed Jolie Seybold - External Hib (HbOC) Unknown Completed Jolie Se ybold - External MMR- Measles, Mumps, Rubella Unknown Completed Jolie Seybold - External Pneumococcal Vaccine, Conjugate 7 Unknown Completed Jolie Seybold - External Varicella Vaccine Unknown Completed Ke lsey Seybold - External Hepatitis B, Unspecified Unknown Completed Jolie Dougherty - External DTP-Hib-Hep B Unknown Completed Jolie Dougherty - External MENINGOCOCCAL VACCINE-CONJUGATE(MENQ UADFI) Unknown Completed Jolie Dougherty - External Hib (HbOC) Unknown Completed Jolie mcghee - External MMR- Measles, Mumps, Rubella Unknown Completed Jolie Dougherty - External Pneumococcal Vaccine, Conjugate 7 Unknown Completed Jolie Dougherty - External Varicella Vaccine Unknown Completed Tony michael Menonold - External Hepatitis B, Unspecified Unknown Completed Jolie Dougherty - External Vital Signs Vital Name Observation Time Observation Value Comments S ource BP Diastolic 2025-04-24 00:00:00 79 mm[Hg] [facility] Height 2025-04-24 00:00:00 72 [in_i] [facility] BMI (Body Mass Index) 2025-04-24 00:00:00 56.7 kg/m2 [facility] BP Systolic 2025-04-24 00:00:00 118 mm[Hg] [facility] Body Weight 2025-04-24 00:00:00 418 [lb_av] [facility] Systolic blood pressure 2024-12-11 21:19:00 130 mm[Hg] Jolie Seybo ld - External Diastolic blood pressure 2024-12-11 21:19:00 70 mm[Hg] Jolie Seybo ld - External Heart rate 2024-12-11 21:19:00 92 /min Sourav y Seybold - External Body temperature 2024-12-11 21:19:00 36.78 Flores Jolie Seybold - External Respiratory rate 2024-12-11 21:19:00 15 /min Jolie Seybold - External Body height 2024-12-11 21:19:00 182.9 cm Talya ey Seybold - External Body weight 2024-12-11 21:19:00 186.882 kg Talya ey Seybold - External BMI 2024-12-11 21:19:00 55.88 kg/m2 Talya ey Seybold - External Oxygen saturation in Arterial blood by Pulse oximetry 2024-12-11 21:19:00 92 /min Jolie Seybo ld - External Body Weight 2024-11-26 00:00:00 415.2 [lb_av] [facility] BP Diastolic 2024-11-26 00:00:00 75 mm[Hg] [facility] BMI (Body Mass Index) 2024-11-26 00:00:00 56.3 kg/m2 [facility] BP Systolic 2024-11-26 00:00:00 110 mm[Hg] [facility] Height 2024-11-26 00:00:00 72 [in_i] [facility] Systolic blood pressure 2024-10-27 22:23:00 134 mm[Hg] Jolie Seybo ld - External Diastolic blood pressure 2024-10-27 22:23:00 72 mm[Hg] Jolie Seybo ld - External Heart rate 2024-10-27 22:23:00 85 /min Kelse y Seybold - External Body temperature 2024-10-27 22:23:00 36.67 Flores Jolie Seybold - External Respiratory rate 2024-10-27 22:23:00 15 /min Jolie Seybold - External Body height 2024-10-27 22:23:00 182.9 cm Talya ey Seybold - External Body weight 2024-10-27 22:23:00 192.325 kg Talya ey Seybold - External BMI 2024-10-27 22:23:00 57.50 kg/m2 Talya ey Seybold - External Oxygen saturation in Arterial blood by Pulse oximetry 2024-10-27 22:23:00 98 /min Jolie Seybo ld - External Systolic blood pressure 2024-09-16 21:50:00 138 mm[Hg] Jolie Seybo ld - External Diastolic blood pressure 2024-09-16 21:50:00 76 mm[Hg] Jolie Seybo ld - External Heart rate 2024-09-16 21:50:00 85 /min Kelse y Seybold - External Body temperature 2024-09-16 21:50:00 36.22 Flores Jolie Seybold - External Respiratory rate 2024-09-16 21:50:00 15 /min Jolie Seybold - External Body height 2024-09-16 21:50:00 182.9 cm Talya ey Seybold - External Body weight 2024-09-16 21:50:00 187.336 kg Talya ey Seybold - External BMI 2024-09-16 21:50:00 56.01 kg/m2 Talya ey Seybold - External Systolic blood pressure 2024-08-12 20:50:00 144 mm[Hg] Jolie Seybo ld - External Diastolic blood pressure 2024-08-12 20:50:00 68 mm[Hg] Jolie Seybo ld - External Heart rate 2024-08-12 20:50:00 96 /min Kelse y Seybold - External Body temperature 2024-08-12 20:50:00 36.83 Flores Jolie Seybold - External Respiratory rate 2024-08-12 20:50:00 15 /min Jolie Seybold - External Body height 2024-08-12 20:50:00 182.9 [...] External Respiratory rate 2024-07-07 19:13:00 16 /min Ojlie Seybold - External Body height 2024-07-07 19:13:00 182.9 cm Talya ey Seybold - External Body weight 2024-07-07 19:13:00 185.521 kg Talya ey Seybold - External BMI 2024-07-07 19:13:00 55.47 kg/m2 Talya ey Seybold - External Systolic blood pressure 2024-06-13 14:14:00 120 mm[Hg] Jolie Seybo ld - External Diastolic blood pressure 2024-06-13 14:14:00 58 mm[Hg] Jolie Seybo ld - External Heart rate 2024-06-13 14:14:00 73 /min Kelse y Seybold - External Body temperature 2024-06-13 14:14:00 37.11 Flores Jolie Johnsonybold - External Respiratory rate 2024-06-13 14:14:00 15 /min Jolie Johnsonybold - External Body height 2024-06-13 14:14:00 182.9 cm Talya jones Seybold - External Body weight 2024-06-13 14:14:00 180.532 kg Talya jones Seybold - External BMI 2024-06-13 14:14:00 53.98 kg/m2 Talya jones Seybold - External Oxygen saturation in Arterial blood by Pulse oximetry 2024-06-13 14:14:00 93 /min Jolie Johnsonybo ld - External Systolic blood pressure 2024-06-05 20:03:00 140 mm[Hg] Jolie ybo ld - External Diastolic blood pressure 2024-06-05 20:03:00 70 mm[Hg] Jolie Johnsonybo ld - External Heart rate 2024-06-05 20:03:00 95 /min Kelse y Seybold - External Body temperature 2024-06-05 20:03:00 36.94 Flores Jolie Johnsonybold - External Respiratory rate 2024-06-05 20:03:00 16 /min Jolie Dougherty - External Body height 2024-06-05 20:03:00 182.9 cm Talya jones Seybold - External Body weight 2024-06-05 20:03:00 178.717 kg Talya jones Seybold - External BMI 2024-06-05 20:03:00 53.44 kg/m2 Talya jones Seybold - External BP Systolic 2024-04-15 00:00:00 [...] External Body temperature 2024-03-14 19:57:00 36.67 Flores Jolie Seybold - External Respiratory rate 2024-03-14 19:57:00 [...] blood pressure 2023-10-19 16:08:00 118 mm[Hg] Jolie Seybo ld - External Diastolic blood pressure 2023-10-19 16:08:00 68 mm[Hg] Jolie Seybo ld - External Heart rate 2023-10-19 16:08:00 [...] Pulse oximetry 2023-10-19 16:08:00 98 /min Jolie Seybo ld - External Procedures Procedure Date / Time Performed Performing Clinicia n Source US TRANSVAGINAL 2025-05-14 00:00:00 [facility] Medical Transvaginal Us Non-ob 2023-12-06 00:00:00 [facility] Medical Tonsillectomy 2012-04-12 00:00:00 [facility] Medical Encounters Start Date/Time End Date/Time Encounter Type Admission Type Attending [facility] Care Department Encounter ID Source 2025-05-14 00:00:00 2025-05-14 00:00:00 Ana Winn MD: [address], [place] [address] , Ph. [facility] - GC_GCBZW_Hetal patino Kostas* [id number] [facility] 2025-05-12 00:00:00 2025-05-12 00:00:00 Outpatient NEFTALI HERNÁNDEZ [id number] Jol[facility] 2025-04-24 00:00:00 2025-04-24 00:00:00 CHAPO Wallis: [address], [place] [address] , Ph. [facility] - GC_GCBZW_Hetal patino Kostas* [id number] [facility] 2025-01-28 00:00:00 2025-01-28 00:00:00 Outpatient NEFTALI HERNÁNDEZ [id number] Jolie [facility] 2024-12-11 16:15:00 2024-12-11 16:15:00 Outpatient GILDARDO LAWTON [id number] [facility] 2024-12-11 15:30:00 2024-12-11 15:30:00 Outpatient NEFTALI HERNÁNDEZ [id number] Jolie [facility] 2024-11-26 00:00:00 2024-11-26 00:00:00 HARPAL Callejas: [address], [place] [address] , Ph. [facility] - GC_GCBZW_Hetal patino Kostas* [id number] [facility] 2024-11-06 00:00:00 2024-11-06 00:00:00 Outpatient NEFTALI HERNÁNDEZ [id number] Jolie Dougherty 2024-10-27 16:30:00 2024-10-27 16:30:00 Outpatient HUNDL, NEFTALI LAWTON [id number] Jolie Dougherty 2024-10-24 16:00:00 2024-10-24 16:00:00 Outpatient HUNDL, NEFTALI LAWTON [id number] Jolie Dougherty 2024-10-11 00:00:00 2024-10-11 00:00:00 Outpatient HUNDL, NEFTALI LAWTON [id number] Jolie Dougherty 2024-09-25 00:00:00 2024-09-25 00:00:00 Outpatient HUNDL, NEFTALI LAWTON [id number] Jolie Dougherty 2024-09-24 00:00:00 2024-09-24 00:00:00 Outpatient HUNDL, NEFTALI LAWTON [id number] [facility] 2024-09-16 16:00:00 2024-09-16 16:00:00 Outpatient HUNDL, NEFTALI LAWTON [id number] [facility] 2024-08-25 00:00:00 2024-08-25 00:00:00 Outpatient PREZAS, GABRIELA LAWTON [id number] [facility] 2024-08-20 00:00:00 2024-08-20 00:00:00 Outpatient HUNDL, [facility]FTALI [facility]WT[facility] [id number] [facility]24-[facility]-12 16:00:00 2024-08-12 16:00:00 Outpatient HUNDL, NEFTALI LAWTON [id number] [facility] 2024-07-07 14:00:00 2024-07-07 14:00:00 Outpatient HUNDL, NEFTALI LAWTON [id number] [facility] 2024-06-19 12:00:00 2024-06-19 12:00:00 Outpatient YANIRA AIMEE LAWTON [id number] Jolie Seybold 2024-06-13 09:30:00 2024-06-13 09:30:00 Outpatient PREZAS, GABRIELA LAWTON [id number] Jolie Seybold 2024-06-13 00:00:00 2024-06-13 00:00:00 Outpatient HUNDL, NEFTALI LAWTON [id number] Jolie ybiram 2024-06-05 15:00:00 2024-06-05 15:00:00 Outpatient TIMUR MATA JOLIE LAWTON [id number] Jolie Seybiram 2024-06-03 13:00:00 2024-06-03 13:00:00 Outpatient JEANETTECandelaria NEFTALI LAWTON [id number] Jolie Seybiram 2024-05-09 16:30:00 2024-05-09 16:30:00 Outpatient EDGAR NEFTALI LAWTON [id number] [facility] 2024-04-15 00:00:00 2024-04-15 00:00:00 CHAPO Wallis: [address] [place] [address], [place] [address] , Ph. [facility] - GC_GCBZW_La Kostas* [id number] [facility] 2024-04-09 00:00:00 2024-04-09 00:00:00 Outpatient NEFTALI HERNÁNDEZ [id number] [facility] 2024-03-14 15:00:00 2024-03-14 15:00:00 Outpatient NEFTALI HERNÁNDEZ [id number] [facility] 2024-02-07 15:00:00 2024-02-07 15:00:00 Outpatient NEFTALI HERNÁNDEZ [id number] [facility] 2024-01-28 00:00:00 2024-01-28 00:00:00 Outpatient NEFTALI HERNÁNDEZ [id number] [facility] 2024-01-25 00:00:00 2024-01-25 00:00:00 Outpatient NEFTALI HERNÁNDEZ [id number] Jolie Seybiram 2024-01-16 00:00:00 2024-01-16 00:00:00 Outpatient MD JOLIE NI [id number] Jolie Seybiram 2024-01-08 15:30:00 2024-01-08 15:30:00 Outpatient NEFTALI HERNÁNDEZ [id number] Jolie Seybiram 2023-12-19 00:00:00 2023-12-19 00:00:00 Outpatient NEFTALI HERNÁNDEZ JOLIE LAWTON [id number] Jolie Seybold 2023-12-12 00:00:00 2023-12-12 00:00:00 Outpatient EDGAR NEFTALI LAWTON [id number] Jolie Seybold 2023-12-11 00:00:00 2023-12-11 00:00:00 Outpatient MD JOLIE NI [id number] Jolie Seybiram 2023-12-10 16:30:00 2023-12-10 16:30:00 Outpatient JEANETTECandelaria NEFTALI LAWTON [id number] Jolie Seybiram 2023-11-26 00:00:00 2023-11-26 00:00:00 Outpatient JEANETTECandelaria NEFTALI LAWTON [id number] Jolie Seybold 2023-11-21 00:00:00 2023-11-21 00:00:00 Outpatient MD JOLIE NI [id number] Jolie Seybiram 2023-11-19 11:15:00 2023-11-19 11:15:00 Outpatient LABBasia JOLIE LAWTON [id number] Jolie Seybiram 2023-11-19 10:30:00 2023-11-19 10:30:00 Outpatient EDGAR NEFTALI JOLIE LAWTON [id number] Jolie Seybold 2023-11-19 00:00:00 2023-11-19 00:00:00 Outpatient EDGAR NEFTALI LAWTON [id number] Jolie Seybold 2023-11-02 16:30:00 2023-11-02 16:30:00 Outpatient LAB90 JOLIE LAWTON [id number] Jolie Seybold 2023-11-02 16:00:00 2023-11-02 16:00:00 Outpatient EDGAR NEFTALI LAWTON [id number] Jolie Seybiram 2023-10-19 10:15:00 2023-10-19 10:15:00 Outpatient TIMUR MATA [id number] Jolie Seybold Results Test Description Test Time Test Comments Results Result Co mments Source [facility] Medical[facility]atitis B virus surface Ag [Presence] in Serum or Plasma by [id number] 00:00:00* Test Item Value Reference Range Interpretation Comme nts HBsAg screen (test code = HB sAg screen) NEGATIVE negative [facility] [id number] 00:00:00* Test Item Value Reference Range Interpretation Comme nts RPR (test code = RPR) NON REACTIVE non reactive [facility] Medicalinterpretation:2025-05-15 00:00:00* Test Item Value Reference Range Interpretation Comme nts interpretation: (test code = interpretation:) Comment [facility] MedicalHCV antibody rfx to quant [id number] 00:00:00* Test Item Value Reference Range Interpretation Comme nts HCV Ab (test code = HCV Ab) NON REACTIVE non reactive [facility] MedicalChlamydia trachomatis and Neisseria gonorrhoeae rRNA panel - Specimen by DANIELA with probe [id number] 00:00:00* Test Item Value Reference Range Interpretation Comme nts aptima combo 2 swab (CT) (te st code = aptima combo 2 swab (CT)) CT NEG negative aptima combo 2 swab (GC) (te st code = aptima combo 2 swab (GC)) GC NEG negative [facility] Notes Date/Time Note Provider Source 2024-12-11 15:22:34 Chief Complaint Patient presents with Follow-up Follow up on weight management Traci Monroy MA [facility] 2024-10-27 16:26:54 Chief Complaint Patient presents with Follow-up Follow up on migraines. She states that the migraines are not better. Traci Monroy MA II [facility] 2024-09-16 15:53:01 Chief Complaint Patient presents with Follow-up Follow up on weight management Traci Monroy MA II [facility] 2024-08-12 15:53:59 Chief Complaint Patient presents with Follow-up Follow up on weight management Traci Monroy MA II [facility] 2024-07-07 14:16:43 Chief Complaint Patient presents with Follow-up Follow up on weight management Traci Monroy MA II [facility] 2024-06-05 15:08:48 Chief Complaint Patient presents with Follow-up Follow up on weight management Traci Monroy MA II [facility] 2024-03-14 15:01:11 Chief Complaint Patient presents with Follow-up Follow up on weight management Traci Monroy MA II [facility] 2024-02-07 14:48:32 Chief Complaint Patient presents with Anxiety Follow up on anxiety/depression. Patient states that she is better. Traci Monroy MA II [facility] 2024-01-08 15:15:46 Chief Complaint Patient presents with Follow-up Follow up on weight management Traci Monroy MA II [facility] 2023-12-10 16:23:46 Chief Complaint Patient presents with Physical Weight Problem Discuss weight management Traci Monroy MA II [facility] 2023-11-19 10:18:47 Chief Complaint Patient presents with Nausea Nausea since last Sunday. Diarrhea occasionally. Frontal headaches above right eye. No abdominal pain. She went to [facility] this past Sunday for the nausea. She did UA. It showed Protein and she was given an antibiotic which she is still taking. Traci Monroy MA II [facility] 2023-11-02 15:55:51 Chief Complaint Patient presents with Contraception SHE WOULD LIKE TO START CONTROL. SHE HAS BEEN ON [employer] FOR IRREGULAR CYCLES ABOUT A YEAR AGO. SHE WOULD LIKE TO START FOR IRREGULAR CYCLES AND A CONTRACEPTIVE. Traci Monroy MA II [facility]
[2025-06-24 18:21] LABS: Absolute Lymphocytes (CBC) 3.0 K/uL (0.7-4.9); Hematocrit 37.8 % (36.0-45.0); Hemoglobin 12.5 g/dL (12.0-15.0); MCH 26.7 pg (27.0-35.0); MCHC 33.0 g/dL (32.0-36.0); MCV 80.8 fL (80-100); MPV 9.0 fL (7.6-11.3); Nucleated RBC Absolute Count 0.0 (0-0); Nucleated Red Blood Cells % 0.0 % (0-0); RBC Red Blood Cell Count 4.68 M/uL (3.86-4.86); White Blood Count 14.50 thou/uL (4.3-10.9)
[2025-06-24 18:37] LABS: Anion Gap 9.5 mEq/L (5.0-15.0); BUN Blood Urea Nitrogen 10.0 mg/dL (7-18); Glucose Level 134.0 mg/dL (74-106); Potassium 3.5 mEq/L (3.5-5.1)
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
[2025-06-24 20:04] VITALS: TEMP 98.3; O2SAT 99
[2025-06-24 20:08] VITALS: BP 157/97
== END 2025-06-24 19:48 | disposition home or self-care (01) ==
LOC: ER 16:58
DX: M54.2 Cervicalgia (principal); R10.31 Right lower quadrant pain; I10 Essential (primary) hypertension; V49.49XA Driver injured in collision with other motor vehicles in traffic accident, initial encounter
CPT/HCPCS: 85025; 80048; 36415; 86900; 86850; 84703; 86901; 70450; 72125; 71260; 74177; 99284; Q9967